=== PATIENT | female | born 1930 | race Two or more races ===

== ENCOUNTER 2017-11-14 01:00 | Inpatient (IN) | payer OTHER ==
[~2017-11-14] VITALS: Ht 157.5 cm; Wt 53.1 kg
[2017-11-14] VITALS (22 sets, daily range): BP systolic 98–163; BP diastolic 52–106
[2017-11-14] MEDS ORDERED: IV NS 0.9% 1,000 ML BAG IV ONE (01:30)
[2017-11-14 01:38] LABS: HEMATOCRIT 39 % (33-45); HEMOGLOBIN 13.4 g/dL (11.5-14.8); MEAN CORPUSCULAR HEMOGLOBIN 30 PG (26.0-33.0); MEAN CORPUSCULAR HGB CONC 35 g/dl (31.0-36.0); MEAN CORPUSCULAR VOLUME 86 fL (82-100); PLATELET COUNT (AUTO) 202 /CMM (150-450); RED BLOOD CELL COUNT(AUTO) 4.46 MIL/uL (4.0-5.2); WHITE BLOOD COUNT (AUTO) 6.3 K/uL (4.3-11.0)
[2017-11-14 01:58] LABS: PROTHROMBIN TIME 10.4 SECS (9.5-12.7)
[2017-11-14 02:04] LABS: TROPONIN I 0.196 ng/mL (0.00-0.056)
[2017-11-14 02:08] LABS: SERUM AMMONIA 27 umol/L (11-32)
[2017-11-14 02:13] LABS: LYMPHOCYTES % (MANUAL) 13 % (16-48); MONOCYTES % (MANUAL) 12 % (0-11.0); NEUTROPHILS % (MANUAL) 75 (42-76)
[2017-11-14 02:24] LABS: ACETAMINOPHEN 3 ug/ml (10-30); ALANINE AMINOTRANSFERASE 30 U/L (12-78); ALBUMIN 3.2 g/dL (3.4-5.0); ALCOHOL, BLOOD < 3 mg/dL (0-0); ALKALINE PHOSPHATASE 71 U/L (46-116); ASPARTATE AMINOTRANSFERASE 27 U/L (15-37); BILIRUBIN,DIRECT 0.1 mg/dL (0.0-0.2); BILIRUBIN,TOTAL 0.3 mg/dL (0.2-1.0); CALCIUM, SERUM 8.2 mg/dL (8.5-10.1); CARBON DIOXIDE 23 mmol/L (21-32); CHLORIDE 83 mmol/L (98-107); CREATININE 0.4 mg/dL (0.6-1.3); GLUCOSE 132 mg/dL (74-106); POTASSIUM 3.8 mmol/L (3.5-5.1); SALICYLATE 1.5 mg/dL (2.8-20.0); TOTAL PROTEIN, SERUM 6.6 g/dL (6.4-8.2); UREA NITROGEN, BLOOD 6 mg/dL (7-18)
[2017-11-14 02:25] LABS: SODIUM SERUM 114 mmol/L (136-145)
[2017-11-14] MEDS ORDERED: ASPIRIN 325 MG TABLET PO ONE (03:00)
[2017-11-14 03:04] LABS: APPEARANCE,URINE CLEAR (CLEAR); BILIRUBIN,URINE NEGATIVE (NEGATIVE); BLOOD, URINE NEGATIVE Ery/uL (NEGATIVE); COLOR,URINE YELLOW (YELLOW); KETONES,URINE 1+ (NEGATIVE); LEUKOCYTE ESTERASE ,URINE NEGATIVE (NEGATIVE); NITRITE, URINE NEGATIVE (NEGATIVE); PROTEIN,URINE NEGATIVE (NEGATIVE); UGLUCOSE NEGATIVE (NEGATIVE); UROBILINOGEN,URINE 0.2 EU/dL (0.2)
[2017-11-14 03:12] LABS: BACTERIA,URINE Few /HPF (None Seen); RBC,URINE 0-2 /HPF (0-2); SQUAMOUS EPITHELIAL CELL,UR Few /HPF (None Seen); URINE AMORPHOUS PHOSPHATES Few /HPF (None Seen); WBC,URINE 0-2 /HPF (0-3)
[2017-11-14] MEDS ORDERED: ASPIRIN 325 MG TABLET ONE (03:57)
[2017-11-14] MEDS ORDERED: IV Sodium Chloride 3% 500 ML 500 ML IV PRN (04:30)
[2017-11-14] MEDS ORDERED: IV NS 0.9% 1,000 ML IV SCH (05:00)
[2017-11-14] MEDS ORDERED: Z GUARD REMEDY 2 OZ OINT TP PRN (05:00)
[2017-11-14] MEDS ORDERED: ONDANSETRON HCL/PF 4 MG/2 ML VIAL IVP PRN (05:00)
[2017-11-14] MEDS ORDERED: MAG HYDROX/AL HYDROX/SIMETH 30 ML UDC PO PRN (05:00)
[2017-11-14] MEDS ORDERED: MAGNESIUM HYDROXIDE 30 ML UDC PO PRN (05:00)
[2017-11-14] MEDS ORDERED: HYDROCODONE/APAP 5/325MG 1 EACH TABLET PO PRN (05:00)
[2017-11-14] MEDS ORDERED: ZOLPIDEM TARTRATE 5 MG TABLET PO PRN (05:00)
[2017-11-14] MEDS ORDERED: ACETAMINOPHEN 325 MG TABLET PO PRN (05:00)
[2017-11-14] MEDS ORDERED: IV Sodium Chloride 3% 500 ML 500 ML IV ONE (05:13)
[2017-11-14 07:12] LABS: CALCIUM, SERUM 7.6 mg/dL (8.5-10.1); CARBON DIOXIDE 21 mmol/L (21-32); CHLORIDE 86 mmol/L (98-107); CREATININE 0.4 mg/dL (0.6-1.3); GLUCOSE 119 mg/dL (74-106); POTASSIUM 3.5 mmol/L (3.5-5.1); UREA NITROGEN, BLOOD 4 mg/dL (7-18)
[2017-11-14 07:37] LABS: SODIUM SERUM 118 mmol/L (136-145)
[2017-11-14] MEDS ORDERED: ASPIRIN 325 MG TABLET PO SCH (09:00)
[2017-11-14] MEDS: ASPIRIN 81 MG TAB.CHEW PO SCH (09:18)
[2017-11-14] MEDS ORDERED: IV NS 0.9% 1,000 ML IV PRN (10:04)
[2017-11-14] MEDS ORDERED: ACID1TAB12 PO (10:10)
[2017-11-14] MEDS ORDERED: CHOL100044 PO (10:10)
[2017-11-14] MEDS ORDERED: CALC500T52 PO (10:10)
[2017-11-14] MEDS ORDERED: LEVO150T8 PO (10:10)
[2017-11-14] MEDS ORDERED: LISI2.5T2 PO (10:10)
[2017-11-14 14:23] LABS: URINE SODIUM, RANDOM 84 mmol/l (40-220)
[2017-11-14 16:27] LABS: OSMOLALITY,URINE 310 mOS/kg (340-1090)
[2017-11-14 18:45] LABS: CALCIUM, SERUM 7.5 mg/dL (8.5-10.1); CARBON DIOXIDE 27 mmol/L (21-32); CHLORIDE 86 mmol/L (98-107); CREATININE 0.4 mg/dL (0.6-1.3); GLUCOSE 118 mg/dL (74-106); POTASSIUM 3.4 mmol/L (3.5-5.1); UREA NITROGEN, BLOOD 4 mg/dL (7-18)
[2017-11-14 18:56] LABS: SODIUM SERUM 117 mmol/L (136-145)
[2017-11-15] VITALS: BP 118/74
[2017-11-15 04:00] VITALS: BP 119/79
[2017-11-15 07:31] LABS: BASOPHILS % (AUTO) 0.2 % (0.0-2.0); EOSINOPHILS % (AUTO) 0.3 % (0.0-6.0); HEMATOCRIT 36 % (33-45); HEMOGLOBIN 12.7 g/dL (11.5-14.8); LYMPHOCYTES # (AUTO) 0.5 /CMM (0.8-4.8); LYMPHOCYTES % (AUTO) 6.9 % (20.0-44.0); MEAN CORPUSCULAR HEMOGLOBIN 31 PG (26.0-33.0); MEAN CORPUSCULAR HGB CONC 35 g/dl (31.0-36.0); MEAN CORPUSCULAR VOLUME 87 fL (82-100); MONOCYTES # (AUTO) 0.7 /CMM (0.1-1.30); MONOCYTES % (AUTO) 9.6 % (2.0-12.0); NEUTROPHILS # (AUTO) 6.4 /CMM (1.8-8.9); PLATELET COUNT (AUTO) 252 /CMM (150-450); RDW COEFFICIENT OF VARIATION 13.1 (11.5-15.0); RED BLOOD CELL COUNT(AUTO) 4.16 MIL/uL (4.0-5.2); WHITE BLOOD COUNT (AUTO) 7.7 K/uL (4.3-11.0)
[2017-11-15 08:23] LABS: THYROID STIMULATING HORMONE 2.656 uIU/mL (0.358-3.74); URIC ACID 1.6 mg/dL (2.6-7.2)
[2017-11-15] MEDS: LEVOTHYROXINE SODIUM 75 MCG TABLET PO SCH (09:01)
[2017-11-15] MEDS: ASPIRIN 81 MG TAB.CHEW PO SCH (09:02)
[2017-11-15] MEDS: LISINOPRIL (5MG) 5 MG TABLET PO SCH (09:03)
[2017-11-15 10:05] LABS: CALCIUM, SERUM 7.5 mg/dL (8.5-10.1); CARBON DIOXIDE 24 mmol/L (21-32); CHLORIDE 87 mmol/L (98-107); CREATININE 0.3 mg/dL (0.6-1.3); GLUCOSE 102 mg/dL (74-106); POTASSIUM 3.5 mmol/L (3.5-5.1); SODIUM SERUM 119 mmol/L (136-145); UREA NITROGEN, BLOOD 5 mg/dL (7-18)
[2017-11-15 10:06] LABS: MAGNESIUM 1.5 mg/dL (1.8-2.4); PHOSPHORUS 2.6 mg/dL (2.5-4.9)
[2017-11-15] MEDS ORDERED: POTASSIUM CHLORIDE 20 MEQ TAB.PRT.SR PO ONE (11:00)
[2017-11-15] MEDS: CARVEDILOL 3.125 MG TABLET PO SCH ×2 (12:01→21:00)
[2017-11-15] MEDS: SODIUM CHLORIDE 1000 MG TABLET.SOL PO SCH ×2 (12:01→17:18)
[2017-11-15 13:52] LABS: URINE SODIUM, RANDOM 58 mmol/l (40-220)
[2017-11-15] MEDS: Magnesium 1GM/D5W 100ML PREMIX 100 ML IV SCH ×4 (14:01→17:17)
[2017-11-15 15:40] LABS: OSMOLALITY,URINE 328 mOS/kg (340-1090)
[2017-11-15 16:00] VITALS: BP 102/58
[2017-11-15 20:00] VITALS: BP 109/70
[2017-11-16] MEDS: LEVOTHYROXINE SODIUM 75 MCG TABLET PO SCH (06:45)
[2017-11-16 07:21] LABS: CALCIUM, SERUM 7.5 mg/dL (8.5-10.1); CARBON DIOXIDE 27 mmol/L (21-32); CHLORIDE 90 mmol/L (98-107); CREATININE 0.4 mg/dL (0.6-1.3); GLUCOSE 88 mg/dL (74-106); PHOSPHORUS 2.4 mg/dL (2.5-4.9); POTASSIUM 4.3 mmol/L (3.5-5.1); SODIUM SERUM 123 mmol/L (136-145); UREA NITROGEN, BLOOD 6 mg/dL (7-18)
[2017-11-16 08:00] VITALS: BP 125/71
[2017-11-16 08:40] VITALS: BP 125/71
[2017-11-16] MEDS: CARVEDILOL 3.125 MG TABLET PO SCH (08:40)
[2017-11-16] MEDS: ASPIRIN 81 MG TAB.CHEW PO SCH (08:40)
[2017-11-16] MEDS: SODIUM CHLORIDE 1000 MG TABLET.SOL PO SCH (08:40)
[2017-11-16] MEDS: LISINOPRIL (5MG) 5 MG TABLET PO SCH (08:40)
[2017-11-16] MEDS ORDERED: Sodium Phosphate 15 MMOL in IV D5W 250 ML IV ONE (11:00)
[2017-11-16] MEDS ORDERED: ONDA4TAB5 PO (12:27)
[2017-11-16] MEDS ORDERED: CARV3.12 PO (12:35)
== END 2017-11-16 16:05 | disposition home health service (06) | DRG 280 ==
LOC: ER 01:06 → SAOV 05:23 → ICU 06:09 → TELE 20:42 → MED 11-15 10:34 → MEDSG2 11-15 10:35
PROVIDERS: ADMIT Internal Medicine; ATTEND Internal Medicine
DX: I21.A1 Myocardial infarction type 2 (principal); G93.41 Metabolic encephalopathy; E43 Unspecified severe protein-calorie malnutrition; E86.0 Dehydration; E22.2 Syndrome of inappropriate secretion of antidiuretic hormone; I42.9 Cardiomyopathy, unspecified; E86.1 Hypovolemia; I50.40 Unspecified combined systolic (congestive) and diastolic (congestive) heart failure; I11.0 Hypertensive heart disease with heart failure; E46 Unspecified protein-calorie malnutrition; Z88.1 Allergy status to other antibiotic agents; B97.89 Other viral agents as the cause of diseases classified elsewhere; I34.0 Nonrheumatic mitral (valve) insufficiency
CPT/HCPCS: 36415; 70450-TC; 71045; 80048-TC; 80076-TC; 80305; 81000-TC; 82140-TC; 82962-TC; 83605-TC; 83735-TC; 83935-TC; 84100-TC; 84300-TC; 84443-TC; 84484-TC; 84550-TC; 85025-TC; 85730-TC; 87040-TC; 87081-TC; 93307-TC; A9563; G0480; J2405; J3475; J3490; J7030; J7060